=== PATIENT | male | born 1970 | race Caucasian/White ===

== ENCOUNTER → 2018-02-20 11:08 | Outpatient (CLI) | payer OTHER, BC, SELFPAY ==
--- NOTE | 2018-02-20 11:16 | DI.REPORT_ITS ---
SYMPTOMS/DIAGNOSIS: LT KNEE PAIN, M25.562 LEFT KNEE: No bony or joint abnormality is identified.
== END ==
PROVIDERS: PCP Nurse Practitioner Family; Visit Provider Nurse Practitioner
DX: M25.562 Pain in left knee (principal)
CPT/HCPCS: 73562

== ENCOUNTER 2018-04-30 01:06 | Outpatient (CLI) | payer OTHER, BC, SELFPAY ==
--- NOTE | 2018-04-30 15:20 | DI.MRI_ITS ---
SYMPTOM/DIAGNOSIS: S83.209A, MENISCAL TEAR, FAILED TREATMENT, LT KNEE PAIN LEFT KNEE MRI: The study was conducted according to the usual protocol. There is a small joint effusion. There is mild chondromalacia involving the medial joint compartment with very mild periarticular osteophyte formation. Mild subchondral marrow edema about this compartment medially would be consistent with degenerative or post traumatic change. The extensor mechanism is normal. There is a horizontal tear involving the body and posterior horn of the medial meniscus with extension to the inferior articular surface. A lobulated fluid intensity signal focus posterior to the junction of the body and posterior horn measures 1.3 by 0.5 by 0.8 cm. and likely represents a para meniscal cyst. The lateral meniscus is unremarkable. Mild edema surrounding the medial collateral ligament is identified. There is no evidence of a tear and the findings would be consistent with a Grade I sprain. Lateral capsule and supporting structures are unremarkable. Anterior cruciate ligament is normal. The posterior cruciate ligament is normal. No abnormality involving the musculature is seen. There is no evidence of a Benoit's cyst. Mild subcutaneous edema is present anteriorly without evidence of a discrete collection. SUMMARY: There is a small joint effusion and a grade I sprain of the medial collateral ligament. There is a medial meniscal tear as described above with an apparent associated para meniscal cyst. Also mild medial degenerative changes are demonstrated. There is mild subchondral marrow edema about the medial compartment which could represent degeneration or be on a post traumatic basis.
--- NOTE | 2018-04-30 15:45 | DI.VRAD_ITS ---
EXAM: MR Left Lower Extremity Without Contrast, Knee EXAM DATE/TIME: 04/30/2018 3:19 PM CLINICAL HISTORY: 48 years old, male; Condition or disease; Other: Meniscal tear, failed treatment TECHNIQUE: MR of the Left Lower extremity without intravenous contrast. Exam focused on the knee. COMPARISON: CR LEFT KNEE 3 VIEW COMPLETE 02/20/2018 11:13 AM FINDINGS: BONES/JOINTS/CARTILAGE: Patellofemoral compartment: There is a small knee joint effusion. Femorotibial compartments: There is mild chondromalacia about the medial compartment, with very mild periarticular osteophyte formation about it. Mild subchondral marrow edema about this compartment medially could be degenerative or posttraumatic. Extensor mechanism: Unremarkable. No evidence of tear. Medial meniscus: There is a horizontal tear involving the body and posterior horn of the medial meniscus, with extension to the inferior articular surface. A lobulated fluid intensity signal focus posterior to the junction of the body and posterior horn measuring 1.3 x 0.5 x 0.8 cm probably represents a parameniscal cyst. Lateral meniscus: Unremarkable. No evidence of tear. Medial capsule/supporting structures: Mild edema surrounds the medial collateral ligament, the fibers of which appear unremarkable, suggesting a grade 1 sprain. Lateral capsule/supporting structures: Unremarkable. No evidence of tear. Anterior cruciate ligament: Unremarkable. No evidence of tear. Posterior cruciate ligament: Unremarkable. No evidence of tear. Musculature: Unremarkable. Soft tissues: No significant Benoit's cyst. Mild subcutaneous edema is present anteriorly without discrete collection. IMPRESSION: 1. Small knee joint effusion. 2. Grade 1 sprain of the medial collateral ligament. 3. Medial meniscal tear as described with probable associated para meniscal cyst posteromedially. 4. Mild medial degenerative changes. 5. Mild subchondral marrow edema about the medial compartment medially, could be degenerative or posttraumatic. Dictated and Authenticated by: Yves Adair MD. Ordering:RONNY WESLEY MD
== END 2018-04-30 01:26 ==
PROVIDERS: PCP Nurse Practitioner Family; Visit Provider Physician Assistant
DX: M25.562 Pain in left knee (principal); S83.412A Sprain of medial collateral ligament of left knee, initial encounter; M25.462 Effusion, left knee; M17.12 Unilateral primary osteoarthritis, left knee
CPT/HCPCS: 73721

== ENCOUNTER 2020-05-30 09:19 | Outpatient (REF) | payer BC, SELFPAY ==
[2020-05-30 22:25] LABS: ALT 30 U/L (16-63); AST 26 U/L (15-37); Calculated LDL 102 mg/dL (<100); Cholesterol 161 mg/dL (<200); Glucose 84 mg/dL (74-106); HDL Cholesterol 38 mg/dL (40-60); Triglyceride 107 mg/dL (<150)
[2020-05-31 18:02] LABS: PSA, Screening 0.6 ng/mL (0.0-3.5)
== END 2020-05-30 09:39 ==
LOC: NCHCN 09:19
PROVIDERS: PCP Nurse Practitioner Family; Visit Provider Nurse Practitioner Family
DX: E66.9 Obesity, unspecified (principal); Z13.220 Encounter for screening for lipoid disorders; Z12.5 Encounter for screening for malignant neoplasm of prostate
CPT/HCPCS: 80061; 82947; 84153; 84450; 84460

== ENCOUNTER 2020-08-02 08:33 | Outpatient (REF) | payer BC, SELFPAY ==
[2020-08-03 15:03] LABS: Albumin 60.2 % (55.8-66.1); Immunotyping, Serum (See Note); Total Protein 6.6 g/dL (6.3-8.2)
== END 2020-08-02 08:34 | disposition home or self-care (01) ==
LOC: NCHCN 08:33
PROVIDERS: PCP Nurse Practitioner Family; Visit Provider Nurse Practitioner Family
DX: T69.1XXA Chilblains, initial encounter (principal)
CPT/HCPCS: 84155; 84165; 86320

== ENCOUNTER 2020-08-05 14:17 | Outpatient (REF) | payer BC, SELFPAY ==
[2020-08-08 14:40] LABS: ANA Interpretation Negative (Negative)
== END 2020-08-05 14:18 | disposition home or self-care (01) ==
LOC: NCHCN 14:17
PROVIDERS: PCP Nurse Practitioner Family; Visit Provider Nurse Practitioner Family
DX: T69.1XXA Chilblains, initial encounter (principal)
CPT/HCPCS: 86038

== ENCOUNTER 2020-08-19 09:03 | Day surgery (SDC) | payer BC, SELFPAY ==
[2020-08-19 09:12] VITALS: BP 122/76; PULSE 68; RESP 16; TEMP 36.2; O2SAT 99
[2020-08-19] MEDS: Lactated Ringers 1,000 ML 80 ML IV (09:36)
--- NOTE | 2020-08-19 10:32 | BOWEL_PTH ---
PATIENT: Paramjit Bond LOC: [facility] U#:[id number] AGE/SX: 50/M ROOM: RE08/19/[address]: Doris Mays : 1970 BED: DIS: 08/19/2020 SPEC #: [id number] RECD: 08/19/20 12:26 STATUS: ZEE REQ #: [id number] HARMAN: 08/19/20 10:[address]: Doris Mays DEPT: Surgical Specimen RECD BY: Rissa Olivier ENTERED: 08/19/20 12:28 SP TYPE: Bowel OTHR DR: Nuzhat Kaur Tissues: 1 - BIOPSY BOWEL 2 - BIOPSY BOWEL 3 - BIOPSY BOWEL Procedures: GROSS AND MICRO LEVEL 4 Comments: [id number]
--- NOTE | 2020-08-19 11:12 | W.COLOREPORT ---
Date of service: 08/19/20 Time of Service: 11:12 Colonoscopy Report Date of procedure: 08/19/20 Pre-op diagnosis general: family Hx CRC Anesthesia proc note operative: GETA Estimated blood loss (mL): 1 Pathology: other Complications: None Disposition: same day Prep: Miralax/Dulcolax Retraction Time: 20 Procedure Description: After informed consent was obtained the patient was taken to the procedure room and placed in a left decubitous position. Monitors were applied and a time out is performed. The patients name, date of , procedure, allergies to medications and metal in their body was reviewed. The patient was then sedated. Once sedated and comfortable a rectal exam was done. External exam was normal. Internal exam revealed a normal sphincter tone and no palpable masses. The scope was then introduced and retrofelexed. No internal hemorrhoids were identified. The scope was then advanced to the cecum w/out difficulty. The TI and appendiceal orifice were identified. The prep was good. The scope was then slowly retracted over 20 minutes back into the rectum. Polyps removed: There is 1x @ 80 cm that is 1.5 cm pedunculated in size. This is removed with a hot snare. All specimens are retrieved and no bleeding. There is 1x 70 cm that is removed with cold biting forcep. It is flat and not ulcerated. It is less than 5 mm in size. There is another at 50 cm that is 1 cm pedunculated in size with a hot polypectomy snare. The snare went deeper into the mucosa, and clip was placed over this defect. All specimens are retrieved and no bleeding is noted. The mucosa is pink and healthy. There is no diverticuli. The patients name, date of , procedure, allergies The scope was removed and the patient was woken up and taken back to Same day surgery in stable condition. Few large mouth diverticula confined to the sigmoid colon. No signs of active bleeding or infection. The patient tolerated the procedure well and there were no immediate complications. Follow up: The patient should follow up in 3 years unless they develop changes in bowel habits or other new gastrointestinal complaints.
--- NOTE | 2020-08-19 11:15 | W.PM.DSUDISC ---
Discharge Plan Disposition Patient Disposition: HOME Condition: Good Discharge Details Reason For Visit: colon scope Attending Provider: Doris Mays Primary Care Provider: Nuzhat Kaur Home Meds and New Rx's Prescriptions: Continued epinephrine [EpiPen] 0.3 mg/0.3 mL auto-injector 0.3 mg IM ONCE RF: 0 Discontinued polyethylene glycol 3350 17 gram/dose powder 238 g PO ONCE Qty: 238 RF: 0 bisacodyl [Dulcolax (bisacodyl)] 5 mg tablet,delayed release (DR/EC) 5 mg PO ONCE Qty: 4 RF: 0 Discharge Instructions Additional Instructions: Findings: x3 polyps no diverticula No aspirin or NSAIDs for-2 weeks. Follow up:repeat in 3 yrs time Please call if you develop: fevers >101.5 Nausea or Vomiting Abdominal pain that is not transient DAY SURGERY UNIT POST COLONOSCOPY INSTRUCTIONS 1. Because there will be medication in your system for the next 24 hours, you may feel a little sleepy. Your coordination will be affected. Therefore: a. Do not drive or operate dangerous equipment for 24 hours. b. Do not drink alcohol beverages for 24 hours (not even beer). c. Plan to go home and rest for the day. 2. Generally there are no restrictions on your activity after a day or so has gone by, but you may feel a bit fatigued for a few days. 3 After you arrive home you may have a light meal and return to a normal diet as you can tolerate it without feeling sick to your stomach. 4. After surgery, you may feel pain or discomfort. This should be only transient, but if it persists please contact your doctor. 5. If there are any questions regarding the findings of your procedure, please feel free to contact your doctor. 6. If you are unable to contact your doctor with a problem, contact the hospital at [phone]. 7. Continue all your regular medications unless directed otherwise. I understand the above instructions and have no questions. Signature of Patient or Responsible Adult Escort Date/Time Name of Responsible Adult Escort Signature of Nurse Date/Time Activity:: No lifting over 20 pounds or strenuous activity x24 hours. Diet:: Small light meals x24 hours. Discharge Orders Discharge Orders: Discharge Order (Routine); Ordered 08/19/20 Ordered By: Doris Mays DS: Diagnosis Discharge Diagnosis (1) Adenomatous polyps: Status: Acute
[2020-08-19 11:30] VITALS: BP 114/76; PULSE 73; RESP 18; TEMP 36.4; O2SAT 96
== END 2020-08-19 12:12 | disposition home or self-care (01) ==
PROVIDERS: PCP Nurse Practitioner Family; Visit Provider Surgery
PROC: 0DJD8ZZ Inspection of Lower Intestinal Tract, Via Natural or Artificial Opening Endoscopic (ICD-10-PCS; CPT 45378; principal; 2020-08-19 09:45)
DX: Z12.11 Encounter for screening for malignant neoplasm of colon (principal); Z80.0 Family history of malignant neoplasm of digestive organs; D12.4 Benign neoplasm of descending colon; D12.5 Benign neoplasm of sigmoid colon
CPT/HCPCS: 45385; 45380; 88305; J2001

== ENCOUNTER 2021-09-15 03:18 | Outpatient (CLI) | payer BC, SELFPAY ==
[2021-09-15 11:55] LABS: Source Nasal/Nares
[2021-09-15 14:25] LABS: COVID-19 PCR Negative (Negative)
== END 2021-09-15 03:19 | disposition home or self-care (01) ==
LOC: LBO 03:18
PROVIDERS: PCP Nurse Practitioner Family; Visit Provider Surgery
DX: Z20.822 Contact with and (suspected) exposure to COVID-19 (principal)
CPT/HCPCS: 87635

== ENCOUNTER 2021-09-18 08:24 | Day surgery (SDC) | payer BC, SELFPAY ==
--- NOTE | 2021-09-18 07:03 | W.COLOREPORT ---
Colonoscopy Report Date of procedure: 09/18/21 Pre-op diagnosis general: Colon Cancer Screening, Hx of polyps Post-op diagnosis procedure note: other (polyp) Procedure: Colonoscopy with polypectomy Surgeon: Beatrice Berry Anesthesia Type: General:No Airway Estimated blood loss (mL): 2 Pathology: other (Transverse polyp) Complications: None Disposition: same day Indications: The patient is here for Colonoscopy pre-op.?His last screening was in 2020, which was remarkable for tubulovillious and tubular adenomatous polyps. He reports that his maternal grandfather had Colon Cancer, age unknown.?He has not had any bowel habit changes. -Discussed colonoscopy bowel prep as well as the procedure. Discussed possible complications of the procedure to include bleeding, pain, perforation, missed small lesion/polyp, sore throat, aspiration and adverse reaction to the medications. Questions were answered to patient?s satisfaction. No guarantees were implied or given.? Prep: Miralax/Dulcolax Procedure Start Time: 10:10 Procedure End Time: 10:37 Retraction Time: 19 minutes Findings: One sessile polyp Procedure Description: After informed consent was obtained the patient was taken to the procedure room and placed in a left decubitous position. Monitors were applied and a time out was done. The patients name, date of , procedure, allergies to medications and metal in their body was reviewed. The patient was then sedated. Once sedated and comfortable a rectal exam was done. External exam was normal. Internal exam revealed a normal sphincter tone and no palpable masses. The prostate felt smooth. The scope was then introduced and retro-flexed. No internal hemorrhoids, polyps or masses were identified on retro-flexion. The scope was then advanced to the cecum without difficulty. The ileocecal vlave and appendiceal orifice were identified. The prep was adequate. The scope was then slowly retracted over 19 minutes back into the rectum. Polyps were removed with cold forceps in the Transverse colon. There was no diverticulosis noted. The scope was removed and the patient was woken up and taken back to Same day surgery in stable condition. The patient tolerated the procedure well and there were no immediate complications. Follow up: The patient should follow up in 5 years unless they develop changes in bowel habits or other new gastrointestinal complaints.
--- NOTE | 2021-09-18 07:04 | W.PM.DSUDISC ---
Discharge Plan Disposition Patient Disposition: HOME Condition: Good Discharge Details Reason For Visit: Colonoscopy Attending Provider: Beatrice Berry Primary Care Provider: Nuzhat Kaur Home Meds and New Rx's Prescriptions: Continued epinephrine [EpiPen] 0.3 mg/0.3 mL auto-injector 0.3 mg IM ONCE 0RF Rx Instructions: as a single dose ibuprofen 800 mg Tablet 800 mg PO PRN0RF Discontinued polyethylene glycol 3350 17 gram/dose powder 238 g PO ONCE Qty: 238 0RF Rx Instructions: take per colonoscopy instructions bisacodyl [Dulcolax (bisacodyl)] 5 mg tablet,delayed release (DR/EC) 5 mg PO ONCE Qty: 4 0RF Rx Instructions: take per colonoscopy instructions Discharge Instructions Additional Instructions: Findings: One polyp Follow up: most likely 5 years Please call if you develop: fevers >101.5 Nausea or Vomiting Abdominal pain that is not transient Rectal bleeding that is more then a tbsp A hard abdomen and inability to pass gas DAY SURGERY UNIT POST ENDOSCOPY INSTRUCTIONS Instructions for everyone who is given Anesthesia: For your safety, please do the following for the next 24 Hours: a. Do not drive or operate dangerous equipment b. Do not drink alcohol beverages or use any recreational drugs for the first 24 hours or while taking pain medications. The medications in your body may have a reaction that can be dangerous. c. Do not make any important decisions or sign any important papers 1. Generally there are no restrictions on your activity after a day or so has gone by, but you may feel a bit fatigued for a few days. 2. After you arrive home you may have a light meal and return to a normal diet as you can tolerate it without feeling sick to your stomach. 3. After surgery, you may feel pain or discomfort. This should be only transient, but if it persists please contact your doctor. 4. If there are any questions regarding the findings of your procedure, please feel free to contact your doctor. 6. If you are unable to contact your doctor with a problem, contact the hospital at [phone]. 7. Continue all your regular medications unless directed otherwise. I understand the above instructions and have no questions. Signature of Patient or Responsible Adult Escort Date/Time Name of Responsible Adult Escort Signature of Nurse Date/Time Activity:: Activity as Tolerated Diet:: As Tolerated Discharge Orders Discharge Orders: Discharge Order (Routine); Ordered 09/18/21 Ordered By: Beatrice Berry
[2021-09-18 08:59] VITALS: BP 131/76; PULSE 64; RESP 20; TEMP 36.3; O2SAT 98
[2021-09-18] MEDS: Lactated Ringers 1,000 ML 80 ML IV (09:15)
[2021-09-18] MEDS: Ketorolac 30 MG/ML VIAL IVP (09:20)
--- NOTE | 2021-09-18 09:32 | ANES.PREOP_ITS ---
General Info Date of Service Date Performed: 09/18/21 Height: 5 ft 11 in Weight: 95.9 kg Body Mass Index (BMI): 29.5 Surgical Procedure: Operation Date: 09/18/21 09:50 Proposed Procedure Side Surgeon jonh Berry MD Meds Allergies and Home Medications Allergies Allergy/AdvReac Type Severity Reaction Status Date / Time bee venom protein (honey bee) Allergy Severe Verified 09/18/21 08:55 coconut Allergy Severe Verified 09/18/21 08:56 Home Medication Medication Instructions Recorded epinephrine 0.3 mg/0.3 mL 0.3 mg IM ONCE 07/04/20 injection, auto-injector (EpiPen) bisacodyl 5 mg tablet,delayed 5 mg PO ONCE #4 tab 09/08/21 release (Dulcolax (bisacodyl)) polyethylene glycol 3350 17 238 g PO ONCE #238 g 09/08/21 gram/dose oral powder ibuprofen 800 mg tablet 800 mg PO PRN 09/18/21 Current Visit Medications: Current Medications Generic Name Dose Route Start Last Admin Trade Name Freq PRN Reason Stop Dose Admin Hyoscyamine Sulfate 0.125 mg 09/18/21 07:04 Hyoscyamine 0.125 Mg Sl/Oral/Chew SL DIRECTED PRN Ringer's Solution 1,000 mls @ 80 mls/hr 09/18/21 06:00 IV 10/15/21 23:59 INFUSION [facility] IV Miscellaneous Supplies 1 each 09/18/21 06:00 Iv Access IV 10/15/21 23:59 DIRECTED ANILA Ondansetron HCl 4 mg 09/18/21 07:04 Ondansetron 4 Mg/2 Ml Vial IVP Q4H PRN PRN Nausea / Vomiting Sodium Chloride 0 ml 09/18/21 06:00 Normal Saline Flush 10 Ml Syr IV 10/15/21 23:59 PRN PRN Sodium Chloride 0 ml 09/18/21 06:00 Normal Saline 10 Ml Vial IJ 10/15/21 23:59 DIRECTED PRN Sterile Water 0 ml 09/18/21 06:00 Water,Injection,Sterile 10 Ml Vial IJ 10/15/21 23:59 DIRECTED PRN PFSH Active Problems Active Problems: Problem Status Onset Code Adenomatous polyps D36.9 Tubulovillous adenoma ~07/2020 D36.9 Tubular adenoma ~07/2020 D36.9 Medical History Medical History Acute tear medial meniscus Chilblains Family history of colon cancer MGF Migraine Medical History Comments:: pt. reports he metabolizes medications fast Surgical History Surgical History (Updated 09/18/21 @ 08:58 by Raina Jones) History of colonoscopy with polypectomy (~08/19/20) History of dental surgery implant Hx of knee surgery Tobacco Smoking/Tobacco Use Status: Never Alcohol Alcohol Intake: current Alcohol intake frequency: a few times a week Alcohol type: beer Substance Use Substance use: Never Substance use type: does not use Details: alcohol: t-7, couple Vital Signs and Lab Results Vital Signs Most Recent Vital Signs in EMR: Most Recent Vital Signs Temp Pulse Resp BP Pulse Ox 36.3 C L 64 20 131/76 98 09/18/21 08:59 09/18/21 08:59 09/18/21 08:59 09/18/21 08:59 09/18/21 08:59 Lab Results Blood Type / Crossmatch: No Data to Display Complete Blood Count: No Data to Display Complete Metabolic Panel: No Data to Display Liver Function Panel: No Data to Display Coagulation Panel: No Data to Display Cardiac Panel: No Data to Display Arterial Blood Gas: No Data to Display Venous Blood Gas: No Data to Display Pancreas Panel: No Data to Display Thyroid Panel: No Data to Display Infectious Disease: Coronavirus (COVID-19)(PCR) Negative (Negative) 09/15/21 08:39 09/15/21 Coronavirus 2019 Source Nasal/Nares 09/15/21 08:39 09/15/21 Blood Cultures: No Data to Display Toxicology Panel: No Data to Display Anesthesia Assessment and Plan Anesthesia History Personal History: Other (High requirements for sedation, jumped off the table during a dental procedure and hit head on the floor. ) Family History: No Family History of Anesthesia Complications Exercise Tolerance Exercise Tolerance: Metabolic Equivalents>4 Pertinent Negatives Pertinent Negatives: No Symptoms of GERD (Food related only), No Major Cardiovascular Symptoms or Complaints, No Major Pulmonary Symptoms or Complaints and No History of CVA/TIA Cardiac & Pulmonary Exam Cardiac Exam: Normal S1/S2 Heart Sounds Pulmonary Exam: Clear Bilateral Breath Sounds Implantable Cardiac Device Does patient have a Pacemaker or an ICD?: No Airway Exam Known Difficult Airway: No Mallampati Class: 1 Mouth Opening: Normal (> 3cm) Thyromental Distance: Greater than 3 cm Neck Range of Motion: Full ROM Neck Circumference: Normal Teeth Condition: Normal Dentition ASA Classification ASA Score: ASA 2 Emergency Case?: No NPO Status NPO Status: NPO Clears >2 hours, Solids >8 hours Anesthesia Plan Resuscitation Status: Full Code Anesthesia Technique: General Anesthesia Airway Planned: Natural Airway Monitors Used: Standard Monitors
[2021-09-18 09:35] VITALS: BMI 29.5
--- NOTE | 2021-09-18 10:27 | BOWEL_PTH ---
PATIENT: Paramjit Bond LOC: [facility] U#:[id number] AGE/SX: 51/M ROOM: RE09/18/[address]: Beatrice Berry MD : 1970 BED: DIS: 09/18/2021 SPEC #: [id number] RECD: 09/18/21 12:04 STATUS: ZEE REQ #: [id number] HARMAN: 09/18/21 10:[address]: Beatrice Berry DEPT: Surgical Specimen RECD BY: Rissa Olivier ENTERED: 09/18/21 12:04 SP TYPE: Bowel OTHR DR: Nuzhat Kaur Tissues: 1 - BIOPSY BOWEL Procedures: GROSS AND MICRO LEVEL 4 Comments: [id number]
[2021-09-18 10:42] VITALS: BP 111/71; PULSE 63; RESP 16; TEMP 36.2; O2SAT 100
[2021-09-18 11:15] VITALS: BP 112/76; PULSE 73; RESP 16; TEMP 36.6; O2SAT 99
--- NOTE | 2021-09-18 11:22 | W.ANESPOSTOP ---
Postoperative Evaluation Date, Time and Location Date Performed: 09/18/21 Time Performed: 11:22 Patient Location: Day Surgery Unit Vital Signs Most Recent Imported Vital Signs: Most Recent Vital Signs Temp Pulse Resp BP Pulse Ox 36.6 C 73 16 112/76 99 09/18/21 11:15 09/18/21 11:15 09/18/21 11:15 09/18/21 11:15 09/18/21 11:15 Pain Score Most Recent Pain Score: Most Recent Pain Score Pain Level 0 09/18/21 11:15 Assessment Mental Status: Awake (Alert & Oriented to Patient Baseline) Airway and Respiratory Function: Patent airway with normal (patient baseline) respiratory exam Cardiovascular Function: Hemodynamically Stable Hydration Status: Adequately Hydrated Nausea & Vomiting: No Nausea or Vomiting Pain: Pt. Denies Any Pain Peripheral Nerve Block: Patient did not receive a nerve block
== END 2021-09-18 11:40 | disposition home or self-care (01) ==
PROVIDERS: PCP Nurse Practitioner Family; Visit Provider Surgery
PROC: 0DJD8ZZ Inspection of Lower Intestinal Tract, Via Natural or Artificial Opening Endoscopic (ICD-10-PCS; CPT 45378; principal; 2021-09-18 09:45)
DX: Z12.11 Encounter for screening for malignant neoplasm of colon (principal); Z86.010 Personal history of colon polyps; K63.5 Polyp of colon
CPT/HCPCS: 45380; 88305; J1885

== ENCOUNTER → 2022-03-26 01:35 | Outpatient (CLI) | payer OTHER, SELFPAY ==
--- NOTE | 2022-03-26 | DI.RAD_ITS ---
Exam(s) XR KNEE RT 3V AP,LAT,CLARK EXAM: XR KNEE RT 3V AP,LAT,CLARK CLINICAL HISTORY: RT KNEE PAIN, M25.561. TECHNIQUE: 2D digital imaging was performed. Three views. COMPARISON: No exams were available for comparison FINDINGS: BONES: No acute fracture is present. No bony destructive lesion is seen. JOINTS: Joint spaces are well maintained. The knee is normally aligned. No joint effusion is seen. SOFT TISSUE: Normal. IMPRESSION: Unremarkable radiographs of the right knee. DATA REPOSITORY: RADIATION DOSE DELIVERED:
== END ==
PROVIDERS: PCP Nurse Practitioner Family; Visit Provider Family Medicine
DX: M25.561 Pain in right knee (principal)
CPT/HCPCS: 73562

== ENCOUNTER → 2022-05-08 02:48 | Outpatient (CLI) | payer OTHER, SELFPAY ==
--- NOTE | 2022-05-08 08:10 | DI.MRI_ITS ---
Exam(s) MR LOWER JOINT RT WO EXAM: MR LOWER JOINT RT WO CLINICAL HISTORY: INTERNAL DERANGEMENT RT KNEE, M23.91 TECHNIQUE: Multiplanar multisequence MRI of the knee was performed. COMPARISON: CR XR KNEE RT 3V AP,LAT,CLARK from 03/26/2022 FINDINGS: EFFUSION: There is a moderate-sized joint effusion. There is no Benoit cyst in the popliteal fossa. MARROW:There is a well-defined benign-appearing osseous lesion in the distal femur metaphysis just ab ove the intercondylar notch, this measuring 1.6 by 0.8 by 0.9 cm. No surrounding bone edema to sugge st that this is an aggressive lesion this has appearance of a benign enchondroma. No other osseous l esions evident. PATELLOFEMORAL COMPARTMENT: The quadriceps tendon is intact. The patellar ligament is intact. There is mild chondromalacia signal over the medial facet cartilage. No deep fissure and no abnormal signal in the patella itself.There is no intraosseous signal to suggest recent patellar dislocation. There are no patellar retinacular tears. CRUCIATE LIGAMENTS: The anterior cruciate ligament is intact.The posterior cruciate ligament is intac t. MEDIAL COMPARTMENT/MEDIAL MENISCUS: There is an oblique tear in the outer aspect of the posterior hor n of the medial meniscus. There is mild meniscocapsular separation. There is also an oblique tear i n the inner half of the posterior horn. Meniscal root is intact. There is no bucket-handle configur ation. The anterior horn appears intact.. There is a small osteochondral defect over the anterior weight-bearing surface of the medial femoral condyle measuring 6 millimeters wide by 7 millimeters AP by 4 millimeters deep. There is overlying i ntra-articular edema in the medial condyle at this level.There are no osteophytes. MEDIAL COLLATERAL LIGAMENT: Mild thin fluid noted between the deep and superficial components. Howev er, no high-grade tear. LATERAL COMPARTMENT/LATERAL MENISCUS: There is no evidence of lateral meniscal tear.There are no olivier dral defects, osteochondral defects, subarticular marrow edema, nor osteophytes evident. ILIOTIBIAL BAND: Intact LATERAL COLLATERAL LIGAMENT COMPLEX: The fibular collateral ligament is intact. The biceps femoris t endon is intact.Popliteus muscle and tendon are intact. IMPRESSION: 1. There are oblique tears both in the outer and inner thirds of the posterior horn of the medial men iscus. Mild meniscocapsular separation noted but no bucket-handle configuration. There are no tears of the anterior horn of the medial meniscus, however, there is small osteochondral defect at the lev el of the anterior weight-bearing surface of the medial condyle. 2. There is thin fluid interposed between the deep and superficial layers of the medial collateral li gament. However, there is no high-grade tear of the MCL. 3. There are no tears of the cruciate ligaments nor of the lateral meniscus. 4. There is chondromalacia patella affecting the mid aspect of the retropatellar cartilage but is no deep fissure reaching the posterior patellar cortex and there is no abnormal signal within the patell a itself. 5. There is a small-moderate size joint effusion. No Benoit cyst. 6. There is a benign appearing osseous lesion in the distal femur which has the appearance of a keke gn enchondroma. This measures 16 x 8 x 9 millimeters. There is no significant surrounding bone nick a to suggest that this is an aggressive bone lesion. DATA REPOSITORY:
== END ==
PROVIDERS: PCP Nurse Practitioner Family; Visit Provider Physician Assistant
DX: S83.241A Other tear of medial meniscus, current injury, right knee, initial encounter (principal); M22.41 Chondromalacia patellae, right knee; S83.411A Sprain of medial collateral ligament of right knee, initial encounter; X58.XXXA Exposure to other specified factors, initial encounter
CPT/HCPCS: 73721

== ENCOUNTER → 2023-06-26 01:46 | Outpatient (CLI) | payer BC, SELFPAY ==
--- NOTE | 2023-06-26 | DI.MRI_ITS ---
Exam(s) MR LUMBAR SPINE WO EXAM: MR LUMBAR SPINE WO CLINICAL HISTORY: LUMBOSACRAL RADICULOPATHY, M54.16, RADICULOPATHY LUMBAR REGION. TECHNIQUE: Multiplanar multisequence MRI of the Lumbar spine was performed. COMPARISON: None FINDINGS: Bones: The last intervertebral disc space is designated the L5/S1 level for the numbering purpose of this examination. The vertebral body heights are well maintained. Alignment is satisfactory. No fermin spicious lesions. Cord: The conus tip ends at the T12 level. It is of normal size and signal intensity. T12-L1: No disc herniations or bulges are present. L1-2: No disc herniations or bulges are present. L2-3: Moderate loss of disc height, eccentric toward the left. Endplate osteophytes and concentric d isc bulging, eccentric toward the left. At degenerative signal changes in the endplates greater on t he left. Severe left neural foraminal narrowing. Moderate right neural foraminal narrowing. L3-4: No disc herniations or bulges are present. L4-5: Small endplate osteophytes and mild concentric disc bulging. Superimposed left paracentral disc herniation with inferior extrusion of disc material posterior to the L5 vertebral body. The fragmen t measures 15 millimeters in length by 8 millimeters AP by 16 millimeters transverse. There is resul ting mild central canal stenosis and impingement on left-sided nerve roots. Narrowing of the left la teral recess. Mild facet degenerative changes and ligamentous hypertrophy. Mild to moderate bilater al neural foraminal narrowing. L5-S1: No disc herniations or bulges are present. Soft tissues: The visualized SI joints and sacrum are well maintained. The paraspinal soft tissues ar e unremarkable. IMPRESSION: Left-sided disc herniation with inferior extrusion of disc material and nerve root impingement at L4- 5. Degenerative disc changes causing severe left neural foraminal narrowing and moderate right at L2-3. DATA REPOSITORY:
== END ==
PROVIDERS: PCP Nurse Practitioner Family; Visit Provider Family Medicine
DX: M51.26 Other intervertebral disc displacement, lumbar region (principal); M99.63 Osseous and subluxation stenosis of intervertebral foramina of lumbar region
CPT/HCPCS: 72148

== ENCOUNTER 2023-07-17 13:26 | Outpatient (CLI) | payer BC, SELFPAY ==
[2023-07-17 13:22] LABS: Abs Immature Grans 0.03 10^3/uL (0.0-0.06); Absolute Basophil Count 0.03 10^3/uL (0.0-0.2); Absolute Eosinophil Count 0.15 10^3/uL (0.0-0.7); Absolute Lymphocyte Count 2.78 10^3/uL (1.2-3.4); Absolute Monocyte Count 0.56 10^3/uL (0.1-0.8); Absolute Neutrophil Count 3.32 10^3/uL (1.2-6.7); Basophils % 0.4; Eosinophils % 2.2; HCT 45.4 % (40.0-50.0); HGB 15.9 g/dL (13.5-17.5); Immature Grans % 0.4; Lymphocytes % 40.5; MCH 30.9 pg (27.0-33.0); MCV 88 fL (80-95); MPV 9.3 fL (8.0-11.0); Monocytes % 8.2; Neutrophils % 48.3; Platelet Count 253 10^3/uL (130-400); RBC 5.14 10^6/uL (4.36-5.78); RDW 12.2 % (11.8-14.1); RDW-SD 39.7 fL; WBC 6.87 10^3/uL (4.4-10.8)
--- OUTSIDE RECORDS SUMMARY | 2023-07-17 13:27 | XMS_ITS | Continuity of Care Document ---
Author Name Unknown Organization [facility] Address [address] [place] [address] Encounter [facility] FIN NBR [id number] Date(s): 04/17/22 - 04/17/22 [facility] [address] [place], [place] [address] Encounter Diagnosis Internal derangement of right knee(Discharge Diagnosis) - 04/17/22 Discharge Disposition: Home or Self Care Attending Physician: NUZHAT Dunlap Allergies, Adverse Reactions, Alerts Substance Reaction Severity Status Bees/Stinging Insects Severe Active Coconut Unknown Active Assessment and Plan Future Scheduled Tests Radiology* MRI Knee w/o Contrast Right 04/17/22 Functional Status 04/17/22 Other exposure to Infectious Disease Non e Problem List Condition Confirmation Course Effective Dates Status Health St atus Informant Internal derangement of right knee Confirmed Active Procedures Procedure Date Related Diagnosis Body Site Status Knee 1 Completed 1MENISCLE REPAIRS X 2 Vital Signs Most recent to oldest [Reference Range]: 1 Peripheral Pulse Rate [60-100 bpm] 76 bp m (04/17/22 12:26 PM) Blood Pressure [90-140/60-90 mmHg] 116/7 6mmHg (04/17/22 12:26 PM) Weight 90.72 kg (04/17/22 12:26 PM) Weight Measured (lbs) 200.003 lb (04/17/22 12:26 PM) Height 180.34 cm (04/17/22 12:26 PM) Height/Length Measured (inches) 71 inch (04/17/22 12:26 PM) BSA Measured 2.13 m2 (04/17/22 12:26 PM) Body Mass Index 27.89 kg/m2 (04/17/22 12:26 PM) Social History Social History Type Response Tobacco Never tobacco user T obacco Use:. Sex Male
--- OUTSIDE RECORDS SUMMARY | 2023-07-17 13:27 | XMS_ITS | Continuity of Care Document ---
Author Name Unknown Organization [facility] Address [address] [place] [address] Encounter [facility] NBR [id number] Date(s): 09/04/22 - 09/04/[address] [facility] [address] [place], [place] [address] Encounter Diagnosis Tear of lateral meniscus of right knee(Discharge Diagnosis) - 09/04/22 Tear of medial meniscus of right knee(Discharge Diagnosis) - 09/04/22 Chondromalacia of right knee(Discharge Diagnosis) - 09/04/22 Loose body of right knee(Discharge Diagnosis) - 09/04/22 Discharge Disposition: Home or Self Care Attending Physician: Semaj Lal MD Allergies, Adverse Reactions, Alerts No Known Medication Allergies Substance Reaction Severity Status Coconut Oil Skin breakdown Unknown Mild Active Bees/Stinging Insects Hives Severe Active Assessment and Plan Future Scheduled Tests Radiology* MRI Knee w/o Contrast Right 04/17/22 Functional Status 09/04/22 Other exposure to Infectious Disease Non e Medications !-Ambia 5 mg-325 mg oral tablet 1 tab, Oral, every 4 hr, PRN as needed for pain, # 10 tab, 0 Refill(s), Pharmacy: [id number] Start Date: 05/29/22 Status: Ordered amoxicillin 500 mg oral tablet 4 TABS, Oral, Once, TAKE 1 TAB 1 HOUR PRIOR TO DENTAL VISIT., # 4 tab, 3 Refill(s), Pharmacy: [id number], 180, cm, 05/31/22 10:23:00 EST, Height/Length Dosing, 91, kg, 05/31/22 10:23:00 EST, Weight Dosing Start Date: 08/02/22 Status: Ordered cyclobenzaprine 5 mg oral tablet 5 mg = 1 tab, Oral, TID, PRN as needed for muscle spasm, # 30 tab, 0 Refill(s), Pharmacy: [id number] Start Date: 05/29/22 Status: Ordered Problem List Condition Confirmation Course Effective Dates Status H ealth Status Informant Back pain Confirmed Active Chondromalacia of right knee Confirmed Active Derangement of knee Confirmed Active Internal derangement of right knee Confirmed Active Disorder of left patellofemoral joint Confirmed Active GERD - Gastro-esophageal reflux disease Confirmed Active History of migraine Confirmed Active Loose body of right knee Confirmed Active MCL sprain of right knee Confirmed Active Tear of lateral meniscus of right knee Confirmed Active Tear of medial meniscus of right knee Confirmed Active Procedures Procedure Date Related Diagnosis Body Site Status Arthroscopy Knee (Right) 1 06/06/22 Completed Colonoscopy Completed Extraction of wisdom tooth Completed Knee 2 Completed 1auto-populated from documented surgical case 2MENISCLE REPAIRS X 2 Vital Signs Most recent to oldest [Reference Range]: 1 Peripheral Pulse Rate [60-100 bpm] 80 bp m (09/04/22 1:18 PM) Blood Pressure [90-140/60-90 mmHg] 135/7 0mmHg (09/04/22 1:18 PM) Weight 90.72 kg (09/04/22 1:18 PM) Weight Measured (lbs) 200.003 lb (09/04/22 1:18 PM) Height 180.33 cm (09/04/22 1:18 PM) Height/Length Measured (inches) 71 inch (09/04/22 1:18 PM) BSA Measured 2.13 m2 (09/04/22 1:18 PM) Body Mass Index 27.9 kg/m2 (09/04/22 1:18 PM) Social History Social History Type Response Tobacco Never tobacco user T obacco Use:. Sex Male Hospital Discharge Instructions Follow Up Care 06/11/2022 13:10:55 With:PIE Address: When: Unknown Physician Outpatient Note * Semaj Lal MD: PERFORM Event Display: Office Clinic Note Physician Authored Date: [id number] GUNNAR ARELLANO :1970 Age:52 years Sex:Male Visit Date:09/04/2022 Chief Complaint WC RIGHT KNEE 3 MONTH History of Present Illness The patient presents for follow-up of his right knee status post partial medial and lateral meniscectomy, chondroplasty, DARSHAN, and removal of loose body on 06/06/2022. ??At the time of surgery, he wasobserved to have up to grade II and III chondromalacia of the patellofemoral articulation, with grade 2 changes about the medial lateral compartments. ??The patient states that he is doing well. ??Hehas been working full-time, full duty??without restrictions. ??He denies swelling, locking, catching, instability, or limping. ??He denies night pain, numbness, or tingling. ??He has not needed to take any medications to address his knee. Physical Exam Vitals & Measurements HR:??80??(Peripheral)?? BP:??135/70?? SpO2:??98%?? HT:??180.33??cm?? WT:??90.72??kg?? BMI:??27.9?? BSA:??2.13?? The patient's right lower extremity is neurovascularly intact. ??Sensation and motor exam are intact distally. ??All digits are warm and pink. ??Surgical wounds are well-healed. ??No swelling or effusion is present. ??Range of motion of the knee is full and painless. ??Papa's test negative. ??The knee was found to be stable to anterior, posterior, varus, and valgus stress. ??No focal tenderness is present about the knee. Assessment/Plan 1.??Tear of lateral meniscus of right knee??S83.281A 2.??Tear of medial meniscus of right knee??S83.241A 3.??Chondromalacia of right knee??M94.261 4.??Loose body of right knee??M23.41 The patient appears to be doing very well status post the above procedure.?? He has been working full duty, full-time without??difficulties or complaints. ??I believe he is ready for a PIE.?? We had a discussion about successful return to activities, and given his chondromalacia, particular involving the patellofemoral articulation, I have advised that he avoid repetitive impact type activities. ??The patient verbalized understanding and all questions were answered. ??He will contact us with any questions or concerns, otherwise we will see him on an as needed basis. Follow Up Instructions With When Contact Information PIE Additional Instructions: Problem List/Past Medical History Ongoing Back pain Chondromalacia of right knee Derangement of knee Disorder of left patellofemoral joint GERD - Gastro-esophageal reflux disease History of migraine Internal derangement of right knee Loose body of right knee MCL sprain of right knee Tear of lateral meniscus of right knee Tear of medial meniscus of right knee Historical No qualifying data Procedure/Surgical History ???Arthroscopy Knee (Right) (06/06/2022)???Colonoscopy???Extraction of wisdom tooth???Knee Medications !-Ambia 5 mg-325 mg oral tablet, 1 tab, Oral, every 4 hr, PRN amoxicillin 500 mg oral tablet, 4 TABS, Oral, Once, 3 refills cyclobenzaprine 5 mg oral tablet, 5 mg= 1 tab, Oral, TID, PRN Allergies Bees/Stinging Insects??(Hives) Coconut Oil??(Skin breakdown, Unknown) No Known Medication Allergies Social History Alcohol Current, Beer- Comments: 3-4 TIMES PER WEEK Electronic Cigarette/Vaping Electronic Cigarette Use: Never. Employment/School Employed, Work/School description: [employer]. Substance Use Never Tobacco Never tobacco user Tobacco Use:. Electronically Signed on 09/04/22 01:37 PM Semaj Lal MD Patient Care team information Care Team Related Persons Name: CRYSTAL ARELLANO Address: Home [address] [place], [place] [id number] [facility]
--- OUTSIDE RECORDS SUMMARY | 2023-07-17 13:27 | XMS_ITS | Continuity of Care Document ---
Author Name Unknown Organization [facility] Address [address] [place] [address] Encounter [facility] FIN NBR [id number] Date(s): 06/06/22 - 06/06/[address] [address] [place] Encounter Diagnosis Chondromalacia of right knee(Discharge Diagnosis) - 06/01/22 Tear of medial meniscus of right knee(Discharge Diagnosis) - 06/01/22 Discharge Disposition: Home or Self Care Attending Physician: Semaj Lal MD Admitting Physician: Semaj Lal MD Referring Physician: Semaj Lal MD Allergies, Adverse Reactions, Alerts Substance Reaction Severity Status Coconut Oil Skin breakdown Unknown Mild Active Bees/Stinging Insects Hives Severe Active Assessment and Plan Future Appointments Future Scheduled Tests Radiology* MRI Knee w/o Contrast Right 04/17/22 Functional Status 06/06/22 Living Environment Home Environment No qualifying data available Prior ADL Status Independent Prior Mobility Status Independent Prior Instrumental ADL Level Independent Prior Cognitive-Communication Skills Ind ependent 06/06/22 Anti-Embolism Device Activity: In place Anti-Embolism Site Condition: No complic ations 06/06/22 Family Member Travel History No recent t ravel Recent Travel History No recent travel Other exposure to Infectious Disease Non e Medications !-[place] 5 mg-325 mg oral tablet 1 tab, Oral, every 4 hr, PRN as needed for pain, # 10 tab, 0 Refill(s), Pharmacy: [facility] Start Date: 05/29/22 Status: Ordered cyclobenzaprine 5 mg oral tablet 5 mg = 1 tab, Oral, TID, PRN as needed for muscle spasm, # 30 tab, 0 Refill(s), Pharmacy: [facility] Start Date: 05/29/22 Status: Ordered Problem List Condition Confirmation Course Effective Dates Status H ealth Status Informant Back pain Confirmed Active Chondromalacia of right knee Confirmed Active Derangement of knee Confirmed Active Internal derangement of right knee Confirmed Active Disorder of left patellofemoral joint Confirmed Active GERD - Gastro-esophageal reflux disease Confirmed Active History of migraine Confirmed Active MCL sprain of right knee Confirmed Active Tear of medial meniscus of right knee Confirmed Active Procedures Procedure Date Related Diagnosis Body Site Status Arthroscopy Knee (Right) 1 06/06/22 Completed Colonoscopy Completed Extraction of wisdom tooth Completed Knee 2 Completed 1auto-populated from documented surgical case 2MENISCLE REPAIRS X 2 Vital Signs Most recent to oldest [Reference Range]: 1 2 3 Temperature Temporal Artery [36-38 Deg C] 36.4 Deg C (06/06/22 1:43 PM) 36.0 Deg C (06/06/22 11:44 AM) 36.7 Deg C (06/06/22 9:10 AM) Temperature Temporal Artery (DegF) [97.3-100 Deg F] 96.8 Deg F *LOW* (06/06/22 11:44 AM) 98.06 Deg F (06/06/22 9:10 AM) Peripheral Pulse Rate [60-100 bpm] 66 bpm (06/06/22 1:02 PM) 69 bpm (06/06/22 12:41 PM) 66 bpm (06/06/22 12:09 PM) Heart Rate Monitored [60-100 bpm] 62 bpm (06/06/22 12:06 PM) 61 bpm (06/06/22 11:54 AM) 65 bpm (06/06/22 11:44 AM) Respiratory Rate [12-24 br/min] 16 br/min (06/06/22 12:06 PM) 16 br/min (06/06/22 11:54 AM) 16 br/min (06/06/22 11:44 AM) Blood Pressure [90-140/60-90 mmHg] 117/86mmHg (06/06/22 12:06 PM) 112/79mmHg (06/06/22 11:54 AM) 111/74mmHg (06/06/22 11:44 AM) Mean Arterial Pressure, Cuff [65-140 mmHg] 96 mmHg (06/06/22 12:06 PM) 90 mmHg (06/06/22 11:54 AM) 86 mmHg (06/06/22 11:44 AM) Mean Arterial Pressure Cuff 95 mmHg (06/06/22 12:06 PM) 88 mmHg (06/06/22 11:54 AM) 86 mmHg (06/06/22 11:44 AM) Blood Pressure Location Left arm (06/06/22 9:10 AM) Blood Pressure Method Automatic (06/06/22 9:10 AM) Weight 91.000 kg (05/31/22 10:18 AM) Weight Dosing 91.000 kg (05/31/22 10:18 AM) Height 180.000 cm (05/31/22 10:18 AM) Height/Length Dosing 180.000 cm (05/31/22 10:18 AM) Social History Social History Type Response Tobacco Never tobacco user T obacco Use:. Sex Male Discharge instructions * Event Display: Discharge Instructions History and physical note * Event Display: History and Physical Update Physician Outpatient Note * Event Display: Office Clinic Note Physician
--- OUTSIDE RECORDS SUMMARY | 2023-07-17 13:27 | XMS_ITS | Continuity of Care Document ---
Author Name Unknown Organization [facility] Address [address] [place] [address] Encounter [facility] FIN NBR [id number] Date(s): 06/14/22 - 06/14/22 [facility] [address] [place], [place] [address] Encounter Diagnosis Chondromalacia of right knee(Discharge Diagnosis) - 06/14/22 Tear of medial meniscus of right knee(Discharge Diagnosis) - 06/14/22 Tear of lateral meniscus of right knee(Discharge Diagnosis) - 06/14/22 Loose body of right knee(Discharge Diagnosis) - 06/14/22 Discharge Disposition: Home or Self Care Attending Physician: NUZHAT Dunlap Allergies, Adverse Reactions, Alerts Substance Reaction Severity Status Coconut Oil Skin breakdown Unknown Mild Active Bees/Stinging Insects Hives Severe Active Assessment and Plan Future Appointments Future Scheduled Tests Radiology* MRI Knee w/o Contrast Right 04/17/22 Functional Status 06/14/22 Other exposure to Infectious Disease Non e Medications !-[place] 5 mg-325 mg oral tablet 1 tab, Oral, every 4 hr, PRN as needed for pain, # 10 tab, 0 Refill(s), Pharmacy: [facility] Start Date: 05/29/22 Status: Ordered [...] Range]: 1 Peripheral Pulse Rate [60-100 bpm] 82 bp m (06/14/22 1:30 PM) Blood Pressure [90-140/60-90 mmHg] 118/7 6mmHg (06/14/22 1:30 PM) Weight 90.72 kg (06/14/22 1:30 PM) Weight Measured (lbs) 200.003 lb (06/14/22 1:30 PM) Height 177.80 cm (06/14/22 1:30 PM) Height/Length Measured (inches) 70 inch (06/14/22 1:30 PM) BSA Measured 2.12 m2 (06/14/22 1:30 PM) Body Mass Index 28.7 kg/m2 (06/14/22 1:30 PM) Social History Social History Type Response Tobacco Never tobacco user T obacco Use:. Sex Male Physician Outpatient Note * NUZHAT [place]: PERFORM Event Display: Office Clinic Note Physician Authored Date: [id number] GUNNAR ARELLANO :1970 Age:52 years Sex:Male Visit Date:06/14/2022 Chief Complaint RIGHT KNEE 1ST POV History of Present Illness The patient comes in today status post surgery on 06/06/2022.?He had a right knee arthroscopy, partial medial and lateral meniscectomy, shaving chondroplasty, lysis of adhesions, and removal of loose body.?? In general he is doing well. ??He has been careful with this. ??He has been taking his aspirin and using ice. ??He has been using Tylenol as needed.?? Patient denies any fevers, chills, chest pain, shortness of breath, numbness or tingling.?? Physical Exam Vitals & Measurements HR:??82??(Peripheral)?? BP:??118/76?? SpO2:??97%?? HT:??177.80??cm?? WT:??90.72??kg?? BMI:??28.7?? BSA:??2.12?? General: AAOx3, in no acute distress, appears to be their stated age, is generally fit appearing. Walks with an antalgic gait. ?? Right??knee: Mild effusion, mild edema. Well approximated incisions. No signs of bleeding, discharge or infection. Calves are soft and nontender, negative homans. Motor sensory reflex exam distally is intact. Range of motion is??to full extension knee is missing approximately 3 degrees of full flexion. Assessment/Plan 1.??Chondromalacia of right knee??M94.261 2.??Tear of medial meniscus of right knee??S83.241A 3.??Tear of lateral meniscus of right knee??S83.281A 4.??Loose body of right knee??M23.41 The patient comes in today status post the aforementioned procedure. ??I will give him a prescribedhome exercise program from the [facility].?? He will continue with his aspirin for another 2 weeks or so. ??He will continue on with Tylenol and ice as needed. ??He can increase his level of activity as tolerated. ??We will see him back in 6 weeks. Problem List/Past Medical History Ongoing Back pain [...] Knee (Right) (06/06/2022)???Colonoscopy???Extraction of wisdom tooth???Knee Medications !-[place] 5 mg-325 mg oral tablet, 1 tab, Oral, every 4 hr, PRN cyclobenzaprine 5 mg oral tablet, 5 mg= 1 tab, Oral, TID, PRN Allergies Bees/Stinging Insects??(Hives) Coconut Oil??(Skin breakdown, Unknown) Social History Alcohol Current, Beer- Comments: 3-4 TIMES PER WEEK Electronic Cigarette/Vaping Electronic Cigarette Use: Never. Employment/School Employed, Work/School description: [employer]EST[employer]. Substance Use Never Tobacco Never tobacco user Tobacco Use:. Electronically Signed on 06/14/22 03:46 PM NUZHAT Dunlap
--- OUTSIDE RECORDS SUMMARY | 2023-07-17 13:27 | XMS_ITS | Continuity of Care Document ---
Author Name Unknown Organization [facility] Address [address] [place] [address] Encounter [facility] NBR [id number] Date(s): 08/02/22 - 08/02/22 [facility] [address] [place], [place] [address] Discharge Disposition: Home or Self Care Attending Physician: NUZHAT [place]lap Allergies, Adverse Reactions, Alerts No Known Medication Allergies Substance Reaction Severity Status Coconut Oil Skin breakdown Unknown Mild Active Bees/Stinging Insects Hives Severe Active Assessment and Plan Future Appointments Future Scheduled Tests Radiology* MRI Knee w/o Contrast Right 04/17/22 Functional Status 08/02/22 Other exposure to Infectious Disease Non e Medications !-[place] 5 mg-325 mg oral tablet 1 tab, Oral, every 4 hr, PRN as needed for pain, # 10 tab, 0 Refill(s), Pharmacy: [facility] Start Date: 05/29/22 Status: Ordered amoxicillin 500 mg oral tablet 4 TABS, Oral, Once, TAKE 1 TAB 1 HOUR PRIOR TO DENTAL VISIT., # 4 tab, 3 Refill(s), Pharmacy: [facility], 180, cm, 05/31/22 10:23:00 EST, Height/Length Dosing, 91, kg, 05/31/22 10:23:00 EST, Weight Dosing Start Date: 08/02/22 Status: Ordered cyclobenzaprine 5 mg oral tablet 5 mg = 1 tab, Oral, TID, PRN as needed for muscle spasm, # 30 tab, 0 Refill(s), Pharmacy: [facility] Start Date: 05/29/22 Status: Ordered [...] Range]: 1 Peripheral Pulse Rate [60-100 bpm] 85 bp m (08/02/22 2:42 PM) Blood Pressure [90-140/60-90 mmHg] 120/7 8mmHg (08/02/22 2:42 PM) Weight 90.72 kg (08/02/22 2:42 PM) Weight Measured (lbs) 200.003 lb (08/02/22 2:42 PM) Height 180.34 cm (08/02/22 2:42 PM) Height/Length Measured (inches) 71 inch (08/02/22 2:42 PM) BSA Measured 2.13 m2 (08/02/22 2:42 PM) Body Mass Index 27.89 kg/m2 (08/02/22 2:42 PM) Social History Social History Type Response Tobacco Never tobacco user T obacco Use:. Sex Male
--- OUTSIDE RECORDS SUMMARY | 2023-07-17 13:27 | XMS_ITS | Continuity of Care Document ---
Author Name Unknown Organization [facility] Address [address] [place] [address] Encounter [facility] FIN NBR [id number] Date(s): 05/29/22 - 05/29/22 [facility] [address], [place] [address] Encounter Diagnosis Tear of medial meniscus of right knee(Discharge Diagnosis) - 05/29/22 Chondromalacia of right knee(Discharge Diagnosis) - 05/29/22 MCL sprain of right knee(Discharge Diagnosis) - 05/29/22 Discharge Disposition: Home or Self Care Attending Physician: NUZHAT Dunlap Allergies, Adverse Reactions, Alerts Substance Reaction Severity Status Bee Stings Unknown Unknown Active Coconut Oil Unknown Unknown Active Bees/Stinging Insects Severe Active Coconut Unknown Active Assessment and Plan Future Appointments Future Scheduled Tests Radiology* MRI Knee w/o Contrast Right 04/17/22 Functional Status 05/29/22 Other exposure to Infectious Disease Non e Medications !-[place] 5 mg-325 mg oral tablet 1 tab, Oral, every 4 hr, PRN as needed for pain, # 10 tab, 0 Refill(s), Pharmacy: [id number] Start Date: 05/29/22 Status: Ordered Aleve 220 mg oral capsule BID, 0 Refill(s) Start Date: 05/28/22 Status: Ordered CeleBREX 100 mg oral capsule 1 Unknown, 0 Refill(s) Start Date: 05/28/22 Status: Ordered cyclobenzaprine 5 mg oral tablet 5 mg = 1 tab, Oral, TID, PRN as needed for muscle spasm, # 30 tab, 0 Refill(s), Pharmacy: [id number] Start Date: 05/29/22 Status: Ordered Problem List Condition Confirmation Course Effective Dates Status H ealth Status Informant Chondromalacia of right knee Confirmed Active Derangement of knee Confirmed Active Internal derangement of right knee Confirmed Active Disorder of left patellofemoral joint Confirmed Active MCL sprain of right knee Confirmed Active Tear of medial meniscus of right knee Confirmed Active Procedures Procedure Date Related Diagnosis Body Site Status Knee 1 Completed 1MENISCLE REPAIRS X 2 Vital Signs Most recent to oldest [Reference Range]: 1 Peripheral Pulse Rate [60-100 bpm] 74 bp m (05/29/22 12:24 PM) Blood Pressure [90-140/60-90 mmHg] 126/7 0mmHg (05/29/22 12:24 PM) Weight 90.72 kg (05/29/22 12:24 PM) Weight Measured (lbs) 200.003 lb (05/29/22 12:24 PM) Height 180.34 cm (05/29/22 12:24 PM) Height/Length Measured (inches) 71 inch (05/29/22 12:24 PM) BSA Measured 2.13 m2 (05/29/22 12:24 PM) Body Mass Index 27.89 kg/m2 (05/29/22 12:24 PM) Social History Social History Type Response Tobacco Never tobacco user T obacco Use:. Sex Male Physician Outpatient Note * NUZHAT Dunlap: PERFORM Event Display: Office Clinic Note Physician Authored Date: [id number] GUNNAR ARELLANO :1970 Age:52 years Sex:Male Visit Date:05/29/2022 Chief Complaint RIGHT KNEE History of Present Illness The patient comes in today with continued right knee pain. ??He states that??while at work he had alarge 4 x 4 and??long piece of wood that he was putting into the back of a truck. ??He had a planting and twisting type injury to his right knee.?? His knee does only hurt with planting and twisting type.?? He finds that walking on flat surfaces it seems okay.?? He does take Tylenol and has tried activity modifications.?? This injury occurred??at the end of February.?? Does not seem to be getting any better and in fact seems worse. An MRI was ordered and he was found to have a meniscus tear.? Physical Exam Vitals & Measurements HR:??74??(Peripheral)?? BP:??126/70?? SpO2:??96%?? HT:??180.34??cm?? WT:??90.72??kg?? BMI:??27.89?? Pain Score:??4?? BSA:??2.13?? General: Alert and oriented x3, pleasant cooperative, in no acute distress, appears to be their stated age, is generally fit appearing.? Right knee:??No effusion. ??Medial joint line tenderness with a painful Papa's. ??Stable anterior and posterior. ??Negative varus valgus stress testing. ??Full range of motion with 5-5 strength in all planes.?? Motor or sensory reflex neurovascular exam distally is intact. Assessment/Plan 1.??Tear of medial meniscus of right knee??S83.241A 2.??Chondromalacia of right knee??M94.261 3.??MCL sprain of right knee??S83.411A The patient comes in today with right knee pain due to an injury while at work. ??He has a medial meniscus tear near the posterior horn??as well as a mild meniscocapsular separation. ??There is an MCL sprain and chondromalacia present mainly in the patellofemoral compartment.?? I did discuss with him evidence of??a enchondroma measuring 16 x 8 x 9 mm. ??I counseled him that this is benign.?? His knee is still swollen and painful. ??He cannot do planting and twisting type motions. ??His knee does??feel unstable to him.?? We therefore??discussed surgery. ??This would be a right knee arthroscopy,??shaving chondroplasty,??and partial medial meniscectomy versus root horn repair. ??The benefits, risk, complications, and postoperative course were described the patient at length. ??He is in agreement and wishes to proceed. ?? We went over use of narcotics postoperatively. ??We will use the smallest dose for the shortest period of time for their acute postoperative pain only. ??This will be in addition to icing, Tylenol, physical therapy, and bracing. ??We will obtain consent and do a risk assessment tool. ??We will also need to check the PDMP as needed. Problem List/Past Medical History Ongoing Chondromalacia of right knee Derangement of knee Disorder of left patellofemoral joint Internal derangement of right knee MCL sprain of right knee Tear of medial meniscus of right knee Historical No qualifying data Procedure/Surgical History ???Knee Medications Aleve 220 mg oral capsule, BID CeleBREX 100 mg oral capsule Allergies Bees/Stinging Insects Bee Stings??(Unknown) Coconut Coconut Oil??(Unknown) Social History Alcohol Current, Beer- Comments: 3-4 TIMES PER WEEK Electronic Cigarette/Vaping Electronic Cigarette Use: Never. Employment/School Employed, Work/School description: [employer]EST[employer]. Tobacco Never tobacco user Tobacco Use:. Diagnostic Results Diagnostic Study Interpretation: An MRI obtained at [facility] on 05/08/2022 shows an oblique outer and inner third of the posterior hornof the medial meniscus tear with mild meniscocapsular separation but no evidence of a bucket-handlecomponent. ??There is an MCL sprain??versus a low-grade partial tear.?? There is chondromalacia about his patella. ??There is a distal femur lesion consistent with an enchondroma measuring 16 x 8 x 9mm. Electronically Signed on 05/29/22 03:56 PM NUZHAT Dunlap
[2023-07-17 13:36] LABS: INR 1.1 (0.9-1.1); PTT Activated 28.6 sec (23.6-32.8); Prothrombin Time 11.4 sec (9.1-11.1)
[2023-07-17 13:52] LABS: ALT 48 U/L (16-63); AST 36 U/L (15-37); Alkaline Phosphatase 91 U/L (46-116); BUN 14 mg/dL (7-18); Bilirubin, Total 0.4 mg/dL (0.2-1.0); Calculated LDL 106 mg/dL (<100); Chloride 103 mmol/L (98-107); Cholesterol 214 mg/dL (<200); Glucose 116 mg/dL (74-106); HDL Cholesterol 42 mg/dL (40-60); Potassium 4.2 mmol/L (3.5-5.1); Sodium 140 mmol/L (136-145); Total Protein 7.8 g/dL (6.4-8.2); Triglyceride 333 mg/dL (<150)
== END 2023-07-17 13:27 | disposition home or self-care (01) ==
LOC: LBO 13:26
PROVIDERS: PCP Nurse Practitioner Family; Visit Provider Nurse Practitioner Family
DX: Z01.818 Encounter for other preprocedural examination (principal); Z00.00 Encounter for general adult medical examination without abnormal findings
CPT/HCPCS: 36415; 80053; 80061; 84153; 85025; 85610; 85730

== ENCOUNTER 2024-07-22 13:20 | Outpatient (REF) | payer BC, SELFPAY ==
[2024-07-22 15:08] LABS: HGB 15.5 g/dL (13.5-17.5); MCH 31.1 pg (27.0-33.0); MCHC 35.2 % (32.0-36.0); MCV 88 fL (80-95); MPV 9.7 fL (8.0-11.0); Platelet Count 235 10^3/uL (130-400); RBC 4.99 10^6/uL (4.36-5.78); RDW 12.4 % (11.8-14.1); RDW-SD 40.2 fL
[2024-07-22 15:38] LABS: ALT 33 U/L (16-63); AST 31 U/L (15-37); Albumin 4.1 g/dL (3.4-5.0); Alkaline Phosphatase 90 U/L (46-116); Anion Gap 10.8 mmol/L (3-11); BUN 17 mg/dL (7-18); Bilirubin, Total 0.49 mg/dL (0.2-1.0); CO2 25.2 mmol/L (21.0-32.0); CREATININE 0.9 mg/dL (0.70-1.30); Calcium 9.5 mg/dL (8.5-10.1); Calculated LDL 96 mg/dL (<100); Chloride 106 mmol/L (98-107); Cholesterol 180 mg/dL (<200); Estimated GFR 101.49 (mL/min/1.73m2); Glucose 83 mg/dL (74-106); HDL Cholesterol 44 mg/dL (40-60); Potassium 4.3 mmol/L (3.5-5.1); Sodium 142 mmol/L (136-145); Total Protein 7.4 g/dL (6.4-8.2); Triglyceride 203 mg/dL (<150)
== END 2024-07-22 13:21 | disposition home or self-care (01) ==
LOC: NCHCN 13:20
PROVIDERS: PCP Nurse Practitioner Family; Visit Provider Nurse Practitioner Family
DX: Z12.5 Encounter for screening for malignant neoplasm of prostate (principal); Z00.00 Encounter for general adult medical examination without abnormal findings
CPT/HCPCS: 80053; 80061; 84153; 85027